=== PATIENT | male | born 1980 | race Two or more races ===

== ENCOUNTER 2020-04-21 20:52 | Emergency (ER) | payer SELFPAY ==
[~2020-04-21] VITALS: Ht 170.2 cm; Wt 72.6 kg
[2020-04-21 21:10] VITALS: BP 163/96
[2020-04-21] MEDS ORDERED: Tetanus/Diptheria/Pertussis IM ONE (21:15)
[2020-04-21] MEDS ORDERED: Haloperidol 5mg/ml Inj IM ONE (21:15)
[2020-04-21 21:40] VITALS: BP 161/89
[2020-04-21 21:40] LABS: BASOPHILS % (AUTO) 1.3 % (0.0-2.0); EOSINOPHILS % (AUTO) 0.9 % (0.0-3.0); HEMATOCRIT 46.4 % (42.0-52.0); HEMOGLOBIN 15.3 G/DL (14.2-18.0); MEAN CORPUSCULAR VOLUME 94 FL (80-99); MONOCYTES % (AUTO) 7.9 % (1.0-10.0); NEUTROPHILS % (AUTO) 72.8 % (45.0-75.0); PLATELET COUNT 196 K/UL (150-450); RED BLOOD COUNT 4.93 M/UL (4.70-6.10); RED CELL DISTRIBUTION WIDTH 11.9 % (11.6-14.8)
[2020-04-21 21:46] LABS: ANION GAP 11 mmol/L (5-15); BLOOD UREA NITROGEN 17 mg/dL (7-18); CALCIUM 8.9 MG/DL (8.5-10.1); CARBON DIOXIDE 26 MMOL/L (21-32); CHLORIDE 102 MMOL/L (98-107); CREATININE 1.2 MG/DL (0.55-1.30); POTASSIUM 3.9 MMOL/L (3.5-5.1); SODIUM 139 MMOL/L (136-145)
[2020-04-21 21:55] LABS: ALANINE AMINOTRANSFERASE 44 U/L (12-78); ALBUMIN 4.4 G/DL (3.4-5.0); ALBUMIN/GLOBULIN RATIO 1.3 (1.0-2.7); ALKALINE PHOSPHATASE 70 U/L (46-116); ASPARTATE AMINO TRANSFERASE 65 U/L (15-37); BILIRUBIN,TOTAL 1.3 MG/DL (0.2-1.0)
[2020-04-21 21:56] LABS: BILIRUBIN,DIRECT 0.3 MG/DL (0.0-0.3)
== END 2020-04-21 21:40 | disposition left against medical advice (07) ==
LOC: EDBD 20:52 → EMR 21:18
DX: T65.91XA Toxic effect of unspecified substance, accidental (unintentional), initial encounter (principal); R41.82 Altered mental status, unspecified; X58.XXXA Exposure to other specified factors, initial encounter; Y92.9 Unspecified place or not applicable; Z23 Encounter for immunization
CPT/HCPCS: 36415; 80053; 82248; 85025; 90471; 90715; G0480; J1630; J7030